=== PATIENT | female | born 1990 | race Hispanic/Latino ===

== ENCOUNTER 2017-09-28 21:31 | Emergency (ER) | payer OTHER, SELFPAY ==
[2017-09-28] MEDS ORDERED: Ondansetron ODT 4 MG TAB ONE (21:55)
[2017-09-28 22:00] LABS: Bilirubin Negative (Negative); Blood, Urine Negative (Negative); Glucose, Urine (Dipstick) Negative (Negative); Leukocyte Trace (Negative); Nitrite Negative (Negative); Protein, Urine (Dipstick) 30 mg/dL (Neg-Trace); Urobilinogen 0.2 mg/dL (0.2-1.0)
[2017-09-28 22:04] LABS: Clarity Cloudy (Clear)
[2017-09-28 22:05] LABS: Pregnancy Test - Urine (BHCG) Negative (Negative); Pregu Control Background? CLEAR/WHITE (CLR/WHITE); Pregu Control Bar Appear? YES (CONTROL BAR)
[2017-09-28 22:06] LABS: Specific Gravity 1.028 (1.002-1.036)
[2017-09-28 22:14] LABS: RBC/HPF 0-3 HPF (0-3); Specific Gravity, Urine 1.028 (1.005-1.030)
== END 2017-09-28 23:15 | disposition home or self-care (01) ==
LOC: NAV ERS 21:31
DX: R11.2 Nausea with vomiting, unspecified (principal)
CPT/HCPCS: 81003; 81015; 81025; 99284; Q0162

== ENCOUNTER 2018-04-01 12:57 | Emergency (ER) | payer SELFPAY ==
[2018-04-01] MEDS ORDERED: Adacel (T-DAP) 0.5 ML VIAL ONE (13:24)
[2018-04-01 13:38] LABS: Pregnancy Test - Urine (BHCG) Negative (Negative); Pregu Control Background? CLEAR/WHITE (CLR/WHITE); Pregu Control Bar Appear? YES (CONTROL BAR); Specific Gravity 1.029 (1.002-1.036)
[2018-04-01] MEDS ORDERED: Ibuprofen 800 MG TAB ONE (13:45)
== END 2018-04-01 13:53 | disposition home or self-care (01) ==
LOC: NAV ERS 12:57
DX: S20.219A Contusion of unspecified front wall of thorax, initial encounter (principal); S50.11XA Contusion of right forearm, initial encounter; V89.2XXA Person injured in unspecified motor-vehicle accident, traffic, initial encounter
CPT/HCPCS: 81025; 90471; 90715